=== PATIENT | female | born 2000 | race Caucasian/White ===

== ENCOUNTER 2021-09-08 10:46 | Outpatient (CLI) | payer OTHER, SELFPAY ==
--- NOTE | ~2021-09-08 | US_ITS ---
EXAMINATION: US OB follow up DATE: 09/08/2021 11:17 INDICATION: Estimated size less than expected for estimated gestational age during third trimes ter of . TECHNIQUE: Real-time ultrasound of the pelvis was performed. The interpreting radiologist was not pre sent for the study. COMPARISON: None. FINDINGS: There is a single living fetus in vertex presentation. The placenta is posterior fundal. heart rate is 138 beats per minute (bpm). The amniotic fluid index is 10.1 cm, which is normal (5th%-95%: 8.6-24.2 cm at 32 weeks estimated gestational age). The following biometric data were obtained: BPD: 7.5 cm -> 30 weeks days Head circumference: 129.0 cm -> 31 weeks 6 days Abdominal circumference: 24.1 cm -> 28 weeks 3 days Femur length: 5.8 cm -> 30 weeks 3 days Head circumference to abdominal circumference ratio of 1.20 is greater than 2 standard deviations abo ve the mean (normal range 0.97-1.18). The femur length to abdominal circumference ratio of 24.16 is also greater than 2 standard deviations above the mean (normal range 20.0-24.0). Estimated weight: 1410 g (+/-) 212 g or 3 lbs. 2 oz. (+/-) 7 oz. IMPRESSION: 1. Single living fetus in vertex presentation with heart rate of 138 bpm. 2. Gestational age by ultrasound of 30 weeks 2 day(s) +/- 2 week(s) 1 day(s) with ultrasound estimate d date of delivery (JIMMIE) of 11/15/2021. Estimated weight is <3rd percentile by Hadlock criteria when 11/03/2021 is used as the JIMMIE. Please correlate with clinical information or earlier ultrasounds for most accurate JIMMIE. 3. Head circumference to abdominal circumference ratio as well as the femur length to abdominal circu mference ratio both greater than 2 standard deviations below the mean. 4. Normal amniotic fluid index of 10.1 cm. Reviewed, dictated and finalized at location A. CRITIC IMPRESSION: 1. Single living fetus in vertex presentation with heart rate of 138 bpm. 2. Gestational age by ultrasound of 30 weeks 2 day(s) +/- 2 week(s) 1 day(s) wi th ultrasound estimated date of delivery (JIMMIE) of 11/15/2021. Estimated we ight is <3rd percentile by Hadlock criteria when 11/03/2021 is used as the JIMMIE. Please correlate with clinical information or earlier ultrasounds for most accu rate JIMMIE. 3. Head circumference to abdominal circumference ratio as well as the femur jessica gth to abdominal circumference ratio both greater than 2 standard deviations be low the mean. 4. Normal amniotic fluid index of 10.1 cm.
== END 2021-09-08 10:47 | disposition home or self-care (01) ==
LOC: ANHIMG 10:54
PROVIDERS: Visit Provider Obstetrics & Gynecology Gynecology
DX: O36.5930 Maternal care for other known or suspected poor fetal growth, third trimester, not applicable or unspecified (principal); Z3A.30 30 weeks gestation of pregnancy
CPT/HCPCS: 76816

== ENCOUNTER 2021-09-19 10:36 | Observation (INO) | payer OTHER, SELFPAY ==
--- NOTE | ~2021-09-19 | US_ITS ---
EXAMINATION: US OB BPP wo non-stress EXAM DATE: 09/19/2021 11:57 INDICATION: heart decelerations. 3rd trimester. TECHNIQUE: Pelvic obstetrical transabdominal sonogram was performed by a technologist. There are mu ltiple grayscale and Doppler images available for interpretation. Comparison is made to prior examina tion from 09/15/2021. FINDINGS: There is a single fetus identified in vertex presentation with a heart rate of 139 beats pe r minute. The placenta is located in the posterior position. There is no sonographic evidence of ret roplacental hemorrhage identified. There is subjectively expected amount of amniotic fluid. BIOPHYSICAL PROFILE (performed by the technologist) breathing (30 sec sustained breathing in 30 minutes): 2 out of 2 movement (3 gross body movements in 30 minutes): 2 out of 2 tone (one episode of mjlvupk-qbrocswoh-swwuluy limb movement): 2 out of 2 Amniotic fluid pocket (2 cm): 2 out of 2 Total score: 8 out of 8 IMPRESSION: 1. Single fetus with heart rate of 139 bpm. 2. Normal biophysical profile score of 8 out of 8. Reviewed, dictated and finalized at location A. ED MILK MIXER
[2021-09-19 11:01] VITALS: BP 124/71; PULSE 92
--- NOTE | 2021-09-19 11:14 | PC.NURSE ---
Updated Dr. Pennington of negative ROM plus result. Updated on FHT including variable decelerations. Patient denies contractions, ctx q 7-8mins via TOCO monitor. Orders received.
[2021-09-19 11:16] VITALS: BP 126/77; PULSE 86
[2021-09-19] MEDS: TERBUTALINE SULFATE 1 MG/ML VIAL 0.25 MG SUB-Q (11:20)
--- NOTE | 2021-09-19 11:21 | PC.NURSE ---
Patient taken to ultrasound via wheelchair
[2021-09-19 12:05] VITALS: TEMP 36.8
--- NOTE | 2021-09-19 12:38 | PC.NURSE ---
Updated Dr. Pennington with BPP results. Patient received terbutaline x1 dose, occasional contractions via TOCO monitor. Patient denies contractions. FHT reactive with variable deceleration. movement active. BPP 02/28. Discharge orders received. labor precautions and kick counts will be reviewed with patient.
--- NOTE | 2021-09-27 07:33 | PM.OBTRLD ---
OB - Triage/Final Diagnosis Visit Information Reason for evaluation: other (Leaking vaginal fluid) Comments/Additional reasons for admission: I have assessed the risk for this patient, Denae Landis, and determined that she would benefit from observation care.
== END 2021-09-19 12:46 | disposition home or self-care (01) ==
LOC: ANHOBOP 10:39 → ANHOBPP 10:40 → ANHOBOP 12:43 → ANHOBPP 12:43
PROVIDERS: Admitting Provider Obstetrics & Gynecology Gynecology; Visit Provider Obstetrics & Gynecology Gynecology
DX: O42.913 Preterm premature rupture of membranes, unspecified as to length of time between rupture and onset of labor, third trimester (principal); Z3A.33 33 weeks gestation of pregnancy
CPT/HCPCS: 76819; 84112; 96372; G0378; G0379; J3105

== ENCOUNTER 2021-10-06 09:46 | Outpatient (RCR) | payer OTHER, SELFPAY ==
[2021-09-08 12:59] VITALS: BP 114/52; PULSE 93
[2021-09-11 09:04] VITALS: BP 118/59; PULSE 83
[2021-09-15 09:40] VITALS: BP 124/74; PULSE 101
[2021-09-18 09:34] VITALS: BP 108/59; PULSE 84
[2021-09-22 12:47] VITALS: BP 116/62; PULSE 84
[2021-09-25 09:23] VITALS: BP 116/67; PULSE 89
[2021-09-29 08:31] VITALS: BP 119/72; PULSE 98
[2021-10-03 11:12] VITALS: BP 124/68; PULSE 82
--- NOTE | ~2021-10-06 | US_ITS ---
EXAMINATION: US OB limited w BPP DATE: 10/03/2021 10:19 INDICATION: decelerations in heart rate. Third trimester. TECHNIQUE: Real-time pelvic ultrasound was performed. COMPARISON: Ultrasound 09/22/2021 FINDINGS: There is a single living fetus in vertex presentation. The placenta is posterior. heart rate i s 138 beats per minute (bpm). The amniotic fluid index is 9.6 cm, which is normal. Biophysical profile performed by the technologist: breathing (30 sec sustained breathing in 30 minutes): 2 out of 2 movement (3 gross body movements in 30 minutes): 2 out of 2 tone (one episode of wukplse-dlezbfrpl-hpzovuw limb movement): 2 out of 2 Amniotic fluid pocket (2 cm): 2 out of 2 Total score: 8 out of 8 IMPRESSION: 1. Single living fetus in vertex presentation. 2. Biophysical profile 8 out of 8. Reviewed, dictated and finalized at location A.
--- NOTE | ~2021-10-06 | US_ITS ---
EXAMINATION: US OB limited DATE: 09/15/2021 09:55 INDICATION: Decelerations during third trimester TECHNIQUE: Real-time ultrasound of the pelvis was performed. The interpreting radiologist was not pre sent for the study. COMPARISON: 216 FINDINGS: There is a single living fetus in vertex presentation. The placenta is posterior. car diac activity and movement are noted. heart rate is 131 beats per minute (bpm). The amnio tic fluid index is 10.0 cm which is normal (normal range: 8.3 cm to 24.5 cm). IMPRESSION: 1. Single living fetus in vertex presentation. 2. Normal amniotic fluid index. Reviewed, dictated and finalized at location A. [employer]
--- NOTE | ~2021-10-06 | US_ITS ---
EXAMINATION: US OB follow up, US umbilical doppler DATE: 10/06/2021 11:15 (accession [id number]), 10/06/2021 11:16 (accession [id number]) INDICATION: Small for gestational age TECHNIQUE: Real-time transabdominal obstetric ultrasound. FINDINGS: Comparison to multiple prior studies sequentially, with oldest reviewed study dated . There is a single living fetus in vertex presentation. The placenta is posterior without placenta pr evia. ZENIA is normal measuring 11.5 cm. cardiac activity and movement is noted with a heart rate of 150 beats per minute. T he amniotic fluid volume is normal. The following biometric data were obtained: BPD: 84mm corresponds to gestational age 33 weeks 5 days. Head circumference: 319mm corresponds to gestational age 35 weeks 6 days. Abdominal circumference: 275mm corresponds to gestational age 31 weeks 4 days. Femur length: 63mm corresponds to gestational age 32 weeks 3 days. Estimated weight: 1970grams +/- 295grams, less than 3% by Hadlock method.] Umbilical artery pulsed Doppler demonstrates peak systolic to end-diastolic velocity ratios (S/D rati os) of 2.84 (5th percentile = 1.98, 95th percentile = 3.28). IMPRESSION: 1. Single living intrauterine in vertex presentation with an estimated gestational age of 36 weeks 0 days by inititial dates. Small for gestational age with estimated weight measuring l ess than 3% by Hadlock method. 2. Normal placenta. 3: Normal umbilical Doppler study. Reviewed, dictated and finalized at location B. IMPRESSION: 1. Single living intrauterine in vertex presentation with an estimat ed gestational age of 36 weeks 0 days by inititial dates. Small for gestational age with estimated weight measuring less than 3% by Hadlock method. 2. Normal placenta. 3: Normal umbilical Doppler study.
--- NOTE | ~2021-10-06 | US_ITS ---
EXAMINATION: 1. US OB limited w BPP 2. US umbilical doppler DATE: 09/22/2021 12:14 INDICATION: COVID-19 pneumonia. Third trimester. TECHNIQUE: Real-time pelvic ultrasound was performed. COMPARISON: Ultrasound 09/19/2021 FINDINGS: There is a single living fetus in vertex presentation. The placenta is posterior. heart rate i s 143 beats per minute (bpm). The amniotic fluid volume is 15.1 cm, which is normal. Biophysical profile performed by the technologist: breathing (30 sec sustained breathing in 30 minutes): 2 out of 2 movement (3 gross body movements in 30 minutes): 2 out of 2 tone (one episode of gvcjuxr-seqnzwafd-aqlgjzq limb movement): 2 out of 2 Amniotic fluid pocket (2 cm): 2 out of 2 Total score: 8 out of 8 Umbilical artery pulsed Doppler demonstrates a peak systolic to end-diastolic velocity ratio (S/D rat io) of 2.7 (5th percentile = 2.07, 95th percentile = 3.53). IMPRESSION: 1. Single living fetus in vertex presentation. 2. Biophysical profile 8 out of 8. 3. Normal umbilical artery Doppler. Reviewed, dictated and finalized at location A. K DYER IMPRESSION: 1. Single living fetus in vertex presentation. 2. Biophysical profile 8 out of 8. 3. Normal umbilical artery Doppler.
[2021-10-06 11:42] VITALS: BP 117/74; PULSE 82
== END 2021-11-29 08:14 | disposition home or self-care (01) ==
LOC: ANHOBOP 09:46
PROVIDERS: Visit Provider Obstetrics & Gynecology Gynecology
DX: O98.513 Other viral diseases complicating pregnancy, third trimester (principal); Z86.16 Personal history of COVID-19; Z3A.32 32 weeks gestation of pregnancy; Z3A.33 33 weeks gestation of pregnancy; Z3A.34 34 weeks gestation of pregnancy; Z3A.35 35 weeks gestation of pregnancy; Z3A.36 36 weeks gestation of pregnancy
CPT/HCPCS: 59025; 76815; 76816; 76819; 76820

== ENCOUNTER 2021-10-07 05:49 | Inpatient (IN) | payer OTHER, SELFPAY ==
[2021-10-07] VITALS (194 sets, daily range): BP systolic 100–150; BP diastolic 54–114; PULSE 52–141; RESP 16; TEMP 36.8–37.4; O2SAT 84–100; BMI 31.5
[2021-10-07 06:53] LABS: Basophils Percent Auto 0.2 % (0.2-1.2); Eosinophils Absolute Auto 0.1 K/mm3 (0-0.3); Eosinophils Percent Auto 0.6 % (0-4.4); Hematocrit 34.2 % (37.0-47.0); Hemoglobin 11.9 g/dL (12.0-15.0); Immature Granulocyte Absolute 0.06 K/mm3 (0.00-0.031); Immature Granulocyte Percent A 0.6 % (0-0.5); Lymphocytes Absolute Auto 1.32 K/mm3 (0.9-3.2); Lymphocytes Percent Auto 12.4 % (18.3-44.2); Mean Corpuscular HGB Conc 34.8 g/dl (32-36); Mean Corpuscular Hemoglobin 32.3 pg (26-34); Mean Corpuscular Volume 92.9 fl (80-100); Monocytes Absolute Auto 0.6 K/mm3 (0.1-0.6); Monocytes Percent Auto 5.4 % (2.6-8.5); Neutrophils Absolute Auto 8.6 K/mm3 (1.3-6.7); Neutrophils Percent Auto 80.8 % (45.5-73.1); Platelet Count Result 180 k/mm3 (150-375); Red Blood Count 3.68 M/mm3 (4.2-5.4); Red Cell Distribution Width 12.8 % (11.5-14.5); White Blood Count 10.7 K/mm3 (4.5-10.0)
[2021-10-07] MEDS: OXYTOCIN 30 UNITS/NS 500 ML 30 UNITS/500 ML BAG 6 UNITS IV CONT (07:00)
[2021-10-07] MEDS: AMPICILLIN 2 GM/NS 100 ML 2 GM/100 ML BAG IVPB (07:01)
[2021-10-07] MEDS: LACTATED RINGERS 1,000 ML 125 ML IV CONT ×2 (07:01→15:07)
--- NOTE | 2021-10-07 07:12 | LDADM ---
This patient, Denae Landis, was admitted to Labor/Delivery/Recovery 106 on 10/07/21 at 05:49. Plans for labor, pain management and were discussed with patient. Patient/family oriented to hospital policies and general routines including ID bracelet, bed and alarms, visiting hours, pain management, procedures, bathroom and other care routines, personal items, smoking policy, room service/diet and guest tray routines, security routines, and visiting hours. Patient/Family are encouraged to report perceived risks to care and to ask questions if they do not understand what they are told or what they should do. See OBIX for further documentation.
--- NOTE | 2021-10-07 07:45 | WPDOBADMIT ---
Obstetrics - Admit Note Admission Note: record reviewed. No pertinent additions to the history and/or any subsequent changes in the physical findings that are not consistent with the expected course of the were found. Additions to the history and/or subsequent changes in the physical findings follow. complicated by Covid in and IUGR. u/s yesterday has infant at <3% with normal dopplers and fluid.. Plan MIL. Cervix 1-2/50/-2 AROM with clear fluid. FHTs reactive.
[2021-10-07 07:58] LABS: HIV 1/2 Ab P24 Ag Result Negative (Negative)
[2021-10-07] MEDS: LACTATED RINGERS 1,000 ML 999 ML IV CONT ×2 (11:09→11:34)
[2021-10-07] MEDS: AMPICILLIN 1 GM/NS 50 ML 1 GM/50 ML BAG IVPB ×3 (11:09→18:52)
--- NOTE | 2021-10-07 20:24 | PM.OBPRVD ---
OB - Delivery Note Procedure Delivery date: 10/07/21 Procedure: Events: Intrauterine Growth Restriction (IUGR) Induction method: AROM and Per Pitocin Protocol Delivery monitor: External FHT and Internal Uterine Route of delivery: Laceration Description: Vaginal Delivery repair: vicryl (3-0) Specimen: Yes (placenta) Quantitative Blood Loss (ml): 100 Anesthesia type: Epidural Disposition: Floor Baby Date of : 10/07/21 Weeks of gestation at delivery: 36 Infant gender: Female Weight (pounds): 4 Weight (ounces): 9 presentation: vertex position: Right Occiput Anterior Placenta delivery description: Spontaneous Cord Vessel Description: 3 Vessels score one minute: 9 score five minutes: 9
--- NOTE | 2021-10-07 20:25 | PM.OBDSVD ---
DS: Admitting Diagnosis Discharge Date 10/09/21 Admitting Diagnosis IUP 36 wks; IUGR; Covid in DS: Discharge Diagnosis Discharge Diagnosis (1) (normal spontaneous vaginal delivery): Code(s): O80 - Encounter for full-term uncomplicated delivery Status: Acute OB - DS: Summary OB Procedures : NST and Ultrasound OB Procedures Intrapartum: Spontaneous Vag Delivery OB Procedures: : None Peripartum Data Delivery Method: Natural Vaginal Laceration Description: Vaginal - 1st Degree complications: none Status at Discharge Functional status at discharge: independent ambulation Overall status at discharge: patient is progressing back to baseline Time Spent with Patient Time attestation: Total time spent providing and/or coordinating discharge services: DS: Data Data Completed and Pending Labs on day of discharge: Labs from last 24 hours 10/07/21 10/07/21 10/07/21 06:27 06:27 06:27 WBC RBC Hgb Hct MCV MCH MCHC RDW Plt Count MPV Immature Gran % (Auto) Neut % (Auto) Lymph % (Auto) [place] % (Auto) Eos % (Auto) Baso % (Auto) Lymph # (Auto) [place] # (Auto) Eos # (Auto) Baso # (Auto) Abs Immat Gran (auto) Absolute Neuts (auto) Absolute Nucleated RBC Nucleated RBC % RPR Pending HIV 1&2 Ab/P24 Ag 4thGn Negative Blood Type A Positive Antibody Screen Negative 10/07/21 06:27 WBC 10.7 H RBC 3.68 L Hgb 11.9 L Hct 34.2 L MCV 92.9 MCH 32.3 MCHC 34.8 RDW 12.8 Plt Count 180 MPV 10.0 Immature Gran % (Auto) 0.6 H Neut % (Auto) 80.8 H Lymph % (Auto) 12.4 L [place] % (Auto) 5.4 Eos % (Auto) 0.6 Baso % (Auto) 0.2 Lymph # (Auto) 1.32 [place] # (Auto) 0.6 Eos # (Auto) 0.1 Baso # (Auto) 0.0 Abs Immat Gran (auto) 0.06 H Absolute Neuts (auto) 8.6 H Absolute Nucleated RBC 0.0 Nucleated RBC % 0.0 RPR HIV 1&2 Ab/P24 Ag 4thGn Blood Type Antibody Screen Discharge Plan Discharge Attending physician on discharge: Charu Pennington Discharging Clinician: Stef Arana Anticipated Discharge Date/Time: 10/09/21 20:27 Patient Disposition: Home, Self-Care Activity: may shower and pelvic rest Diet: regular Discharge Instructions: Education: Mom and Baby Guide Given to: Mother Follow-Up: Call your delivering provider's office for an appointment to be seen in: 4 Weeks Mom and baby should come to the [facility] for the follow-up appointment. Appointment Date/Time: October 10, 2021 at 8:00 am What to expect at your follow-up visit: Blood Pressure Check Call [phone] if you are unable to keep your appointment time. BREAST CARE: * Wear a snug supportive bra. * For engorgement discomfort: Breast Feeding: * Apply warm moist washcloths * Express milk as needed to relieve engorgement * Wear loose clothing Bottle Feeding: * May apply ice packs * For sore nipples: * Identify correct latch-on * Apply warm moist washcloths before and after nursing * Air dry nipples after nursing * May apply Lansinoh cream to nipples PERINEAL CARE: * Until bleeding stops, use your romario bottle after urinating * Change your pad frequently throughout the day * You may take sitz baths several times a day (fill your bathtub with warm water and soak for 20 minutes.) Do NOT bathe in the water * No tub baths until seen by your physician - You may shower ACTIVITY: * Rest as much as possible. * Do not exercise or lift anything heavier than your baby (such as laundry or other children.) * Avoid stairs or driving as much as possible. * Do not put anything into the vagina. No douching, tampons, or sexual activity until seen by physician. NOTIFY PHYSICIAN IF YOU HAVE ANY QUESTIONS OR IF ANY OF THE FOLLOWING SYMPTOMS OCCUR: * If your perineum
[2021-10-07] MEDS: BENZOCAINE 20% AER SPR (*SP) 56 GM CAN 1 SPRAY TOPICAL (22:59)
[2021-10-07] MEDS: WITCH HAZEL 40 PADS 1 PAD TOPICAL (22:59)
[2021-10-08 04:00] VITALS: BP 118/59; PULSE 94; RESP 16; TEMP 36.8; O2SAT 100
[2021-10-08] MEDS: IBUPROFEN 600 MG TABLET PO ×3 (05:27→20:07)
[2021-10-08 05:52] LABS: Hemoglobin 10.3 g/dL (12.0-15.0)
[2021-10-08] MEDS: MULTIVIT/MIN/PREN/FOL AC/IRON TABLET 1 TAB PO (07:26)
[2021-10-08] MEDS: ACETAMINOPHEN 325 MG TABLET 650 MG PO (07:26)
[2021-10-08 07:45] VITALS: BP 123/75; PULSE 78; RESP 18; TEMP 36.8; O2SAT 99
--- NOTE | 2021-10-08 07:51 | P.PNOB_ITS ---
OB - PN: Subj Subjective Date/time seen: 10/08/21 07:51 Patient comments: no complaints and pain well controlled baby status: doing well [place] feeding status: breast and bottle feeding OB - PN: Obj Data Labs CBC & Chem 7: 10/08/21 05:19 Labs: Laboratory Results - last 24 hr 10/07/21 10/08/21 06:27 05:19 Hgb 10.3 L Hct 30.0 L HIV 1&2 Ab/P24 Ag 4thGn Negative OB - PN A/P Plan day: 1 Plan: routine care and other (plans depoprovera) Time Spent With Patient Time: Total time spent is greater than 50% in coordination of care (as documented) at patient's floor/unit and/or counseling patient: Exam : Bimanual exam- vagina & uterus: other (Uterus firm, nt @U)
--- NOTE | 2021-10-08 11:11 | WPDANLDPN2 ---
Anes-Prog Note L&D Date/Time: 10/08/21 11:11 Comfortable throughout: labor and delivery Neuraxial method: epidural Epidural/Spinal procedure site: clean & non-tender Neuro status: Neuro function grossly intact. Cardiovascular status: normal Respiratory status: normal Airway patency: baseline Mental status: baseline Post-Op hydration status: normal Vital Signs: Last Vital Signs Temp 36.8 C 10/08/21 07:45 Pulse 78 10/08/21 07:45 Resp 18 10/08/21 07:45 BP 123/75 10/08/21 07:45 Pulse Ox 99 10/08/21 07:45 Pain score (VAS): 3 I/O: Intake & Output 10/07/21 10/08/21 10/08/21 23:59 07:59 15:59 Intake Total 240 Output Total 2300 Balance -2300 240 Post-procedural complaints: none Patient feedback: Patient satisfied with anesthetic care.
[2021-10-08 11:29] LABS: Rapid Plasma Reagin Non-Reactive (NonReactive)
[2021-10-08 12:02] VITALS: BP 120/79; PULSE 77; RESP 18; TEMP 37.7; O2SAT 100
--- NOTE | 2021-10-08 12:40 | PC.NURSE ---
Breast pump provided due to maternal choice. Mom states she has not been putting the infant to breast and does not want to at this time but would like to stat pumping. Reviewed information regarding pump care, hand washing, nipple care and pumping 8 times in 24 hours (1-2 at night) for 10-15 minutes. Collection and storage of breastmilk per mom and baby guide. Encouraged mom to place infant skin to skin, breast massage and use hand expression and/or a breast pump in a relaxing atmosphere. Reviewed recording pumping schedule on the feeding sheet or pumping log. Referred to the visual handout along with the mom and baby guide as a resource and when to call a provider. Reported to primary RN.
[2021-10-08 20:00] VITALS: BP 114/67; PULSE 83; RESP 18; TEMP 36.7; O2SAT 98
--- NOTE | 2021-10-09 07:00 | PC.NURSE ---
PT introductions made and plan of care discussed per post , pain management, breast and bottle feeding, daily care activities and pending discharge to home. PT verbalized understanding of such care. PT and spouse both recipients of instructions and no barriers to learning identified at this time. PT received instructions per one to one discussion, mom baby care guide and demonstrations this shift.
[2021-10-09] MEDS: ACETAMINOPHEN 325 MG TABLET 650 MG PO ×2 (07:09→13:28)
[2021-10-09] MEDS: IBUPROFEN 600 MG TABLET PO ×2 (07:11→13:29)
[2021-10-09] MEDS: DOCUSATE SODIUM 100 MG CAPSULE PO (07:11)
[2021-10-09 07:12] VITALS: BP 119/73; PULSE 74; RESP 18; TEMP 36.3; O2SAT 100
[2021-10-09] MEDS: MULTIVIT/MIN/PREN/FOL AC/IRON TABLET 1 TAB PO (07:12)
[2021-10-09] MEDS: medroxyPROGESTERone ACETATE IM 150 MG/ML SYR IM (13:30)
--- NOTE | 2021-10-09 13:30 | PC.NURSE ---
PT received discharge instructions per protocol and verbalized understanding of such instructions.
--- NOTE | 2021-10-09 14:10 | PC.NURSE ---
Pt discharged to home ambulatory accompanied by significant other and and taken to waiting car. Follow up appts confirmed
[2021-10-11 07:58] VITALS: BP 122/74; PULSE 85; RESP 20; TEMP 36.6
== END 2021-10-09 14:10 | disposition home or self-care (01) | DRG 560 ==
LOC: ANHLDR 10-12 09:09 → ANHOB2 10-12 09:09
PROVIDERS: Admitting Provider Obstetrics & Gynecology Gynecology; Visit Provider Obstetrics & Gynecology
DX: O36.5930 Maternal care for other known or suspected poor fetal growth, third trimester, not applicable or unspecified (principal); Z37.0 Single live birth; Z3A.36 36 weeks gestation of pregnancy; O71.4 Obstetric high vaginal laceration alone
CPT/HCPCS: 36415; 85014; 85018; 85025; 86592; 86703; 86850; 86900; 86901; 88307; A9270; G0432; J0290; J1050; J2590; J2795; J7120